=== PATIENT | male | born 1960 | race Two or more races ===

== ENCOUNTER 2023-07-07 08:45 | Inpatient (IN) | payer OTHER ==
[~2023-07-07] VITALS: Ht 185.4 cm; Wt 103.9 kg
[2023-07-07 10:08] LABS: PH,URINE 6.5 (5.0-8.0); URINE APPEARANCE Clear; URINE BILIRRUBIN Negative (NEGATIVE); URINE BLOOD Negative; URINE COLOR Yellow; URINE LEUKOCYTE Negative; URINE NITRATE Negative; URINE PROTEIN Negative (NEGATIVE); URINE UROBILINOGEN 0.2 E.U./dl
[2023-07-07 10:12] LABS: URINE RBC 6.1 uL (0.0-20.8); URINE WBC 2.6 uL (0.0-23.2)
[2023-07-07 10:25] LABS: URINE BACTERIA 3.7 uL (0.0-1933); URINE EPITHELIAL CELLS 0.4 uL (0.0-38.8); URINE GLUCOSE >=1000 MG/DL (NEGATIVE)
[2023-07-07] MEDS ORDERED: JANUVIA100 MG PO (10:26)
[2023-07-07] MEDS ORDERED: ADULT LOW DOSE81 M1 PO (10:27)
[2023-07-07] MEDS ORDERED: LISINO PO (10:27)
[2023-07-07] MEDS ORDERED: ATORVAS PO (10:27)
[2023-07-07] MEDS ORDERED: CATAFLAN PO (10:28)
[2023-07-07 10:34] LABS: HEMATOCRIT 43.4 % (39.0-48.0); HEMOGLOBIN 14.9 g/dL (13-16.00); MEAN CELL VOLUME 87.3 fL (80.0-100.00); MEAN CORPUSCULAR HEMOGLOBIN 30.1 pg (27.00-32.0); MEAN CORPUSCULAR HGB CONC 34.4 g/dl (32.0-36.0); PLATELET COUNT 263 K/uL (150-450); RED BLOOD COUNT 4.97 M/uL (4.00-6.00)
[2023-07-07 10:57] LABS: ALBUMIN 4.1 gm/dL (3.4-5.0); BILIRUBIN TOTAL 1.29 mg/dL (0.3-1.2); CALCIUM 9.7 mg/dL (8.5-10.1); CREATININE SERUM 0.98 mg/dL (0.70-1.30); GFR 77.25; GLOBULINA 3.2 G/DL (2.4-3.5); POTASSIUM 4.77 mEq/L (3.5-5.1); TOTAL PROTEIN 7.3 gm/dL (6.4-8.2)
[2023-07-07 11:00] LABS: INR 1.05; PARTIAL THROMBOPLASTIN TIME 28.5 SECONDS (22.0-34.0)
[2023-07-19] MEDS ORDERED: FAMOTIDINE20 MG (14:03)
[2023-07-19] MEDS ORDERED: GLIMEPIRIDE4 M1 (14:03)
[2023-07-19] MEDS ORDERED: LISINOPRIL10 MG (14:03)
[2023-07-19] MEDS ORDERED: ATORVASTATIN CA40 MG (14:04)
[2023-07-19] MEDS ORDERED: DICLOFENAC POTA25 M1 PO (14:06)
[2023-07-19 22:23] LABS: HEMATOCRIT 43.6 % (39.0-48.0); HEMOGLOBIN 14.5 g/dL (13-16.00); RED BLOOD COUNT 4.91 M/uL (4.00-6.00)
[2023-07-20 07:50] LABS: HEMATOCRIT 41.5 % (39.0-48.0); MEAN CELL VOLUME 88.3 fL (80.0-100.00); MEAN CORPUSCULAR HEMOGLOBIN 29.9 pg (27.00-32.0); MEAN CORPUSCULAR HGB CONC 33.8 g/dl (32.0-36.0); PLATELET COUNT 241 K/uL (150-450); RED CELL DISTRIBUTION WIDTH 13.1 % (11.5-14.5)
[2023-07-21] MEDS ORDERED: XARELTO10 MG PO (06:34)
[2023-07-21] MEDS ORDERED: INTEGRA PLUS C1 EACH PO (06:34)
[2023-07-21] MEDS ORDERED: BACTRIM DS TAB1 EACH PO (06:34)
[2023-07-21] MEDS ORDERED: OXYC1TAB9 PO (06:34)
[2023-07-21 07:53] LABS: HEMATOCRIT 39.1 % (39.0-48.0); HEMOGLOBIN 13.4 g/dL (13-16.00); MEAN CELL VOLUME 87.5 fL (80.0-100.00); MEAN CORPUSCULAR HEMOGLOBIN 29.9 pg (27.00-32.0); MEAN CORPUSCULAR HGB CONC 34.2 g/dl (32.0-36.0); PLATELET COUNT 233 K/uL (150-450); RED BLOOD COUNT 4.47 M/uL (4.00-6.00); RED CELL DISTRIBUTION WIDTH 13.1 % (11.5-14.5)
== END 2023-07-21 18:45 | DRG 470 ==
LOC: SURG 07-13 08:45 → O/R 07-19 11:00 → SURH 07-19 20:52
PROVIDERS: ADMIT Orthopaedic Surgery Sports Medicine; ATTEND Orthopaedic Surgery Sports Medicine
PROC: 3E0F7SF Introduction of Other Gas into Respiratory Tract, Via Natural or Artificial Opening (ICD-10-PCS; 2023-07-19)
PROC: 0SRD0J9 Replacement of Left Knee Joint with Synthetic Substitute, Cemented, Open Approach (ICD-10-PCS; principal; 2023-07-19 12:45)
PROC: B54CZZZ Ultrasonography of Left Lower Extremity Veins (ICD-10-PCS; 2023-07-21)
DX: M17.12 Unilateral primary osteoarthritis, left knee (principal); R60.0 Localized edema; I10 Essential (primary) hypertension; E11.9 Type 2 diabetes mellitus without complications; Z79.4 Long term (current) use of insulin

== ENCOUNTER 2024-10-04 07:45 | Inpatient (IN) | payer OTHER ==
[~2024-10-04] VITALS: Ht 185.4 cm; Wt 97.5 kg
[~2024-10-04 07:45] MED LIST: ADULT LOW DOSE81 M1 PO; ATORVAS PO; ATORVASTATIN CA40 MG; BACTRIM DS TAB1 EACH PO; CATAFLAN PO; DICLOFENAC POTA25 M1 PO; FAMOTIDINE20 MG; GLIMEPIRIDE4 M1; INTEGRA PLUS C1 EACH PO; JANUVIA100 MG PO; LISINO PO; LISINOPRIL10 MG; OXYC1TAB9 PO; XARELTO10 MG PO
[2024-10-04 09:22] LABS: HEMOGLOBIN 16.1 g/dL (13-16.00); MEAN CELL VOLUME 90.5 fL (80.0-100.00); MEAN CORPUSCULAR HGB CONC 34.2 g/dl (32.0-36.0); PLATELET COUNT 244 K/uL (150-450); RED BLOOD COUNT 5.19 M/uL (4.00-6.00); RED CELL DISTRIBUTION WIDTH 14.4 % (11.5-14.5)
[2024-10-04 09:51] LABS: PH,URINE 5.5 (5.0-8.0); URINE APPEARANCE Clear; URINE BILIRRUBIN Negative (NEGATIVE); URINE BLOOD Negative; URINE COLOR Yellow; URINE KETONE Negative (NEGATIVE); URINE LEUKOCYTE Negative; URINE NITRATE Negative; URINE PROTEIN Negative (NEGATIVE); URINE UROBILINOGEN 0.2 E.U./dl
[2024-10-04 09:51] LABS: INR 1.05; PARTIAL THROMBOPLASTIN TIME 29.5 SECONDS (22.0-34.0); PROTHROMBIN TIME 11.4 SECONDS (9.0-11.5)
[2024-10-04] MEDS ORDERED: [UNRECOGNIZED DRUG - OTHER] (09:53)
[2024-10-04] MEDS ORDERED: GABAPENTIN 800MG (09:53)
[2024-10-04] MEDS ORDERED: ETODOLAC 500 MG (09:54)
[2024-10-04 09:55] VITALS: BP 148/77
[2024-10-04 09:56] LABS: URINE WBC 2.1 uL (0.0-23.2)
[2024-10-04 10:00] LABS: URINE BACTERIA 2.4 uL (0.0-1933); URINE EPITHELIAL CELLS 0.4 uL (0.0-38.8); URINE GLUCOSE >=1000 MG/DL (NEGATIVE); URINE RBC 1.6 uL (0.0-20.8)
[2024-10-04 10:19] LABS: BILIRUBIN TOTAL 0.95 mg/dL (0.3-1.2); CALCIUM 9.6 mg/dL (8.5-10.1); CREATININE SERUM 0.96 mg/dL (0.70-1.30); GFR 78.86; GLOBULINA 3.3 G/DL (2.4-3.5); POTASSIUM 4.3 mEq/L (3.5-5.1); TOTAL PROTEIN 7.3 gm/dL (6.4-8.2)
[2024-10-04 11:15] LABS: RH POSITIVE
[2024-10-09] MEDS ORDERED: CEFAZOLIN SODIUM 1,000 MG VIAL ONE ×2 (10:25→17:51)
[2024-10-09] MEDS ORDERED: TRANEXAMIC ACID 100MG/1ML (1000MG) AMPUL IV ONE (12:16)
[2024-10-09] MEDS ORDERED: CEFOXITIN SODIUM 2,000 MG VIAL IV ONE (12:16)
[2024-10-09] MEDS ORDERED: KETOROLAC TROMETHAMINE 60 MG VIAL IM ONE (13:07)
[2024-10-09] MEDS ORDERED: VANCOMYCIN HCL 1,000 MG VIAL ONE ×2 (13:12→13:30)
[2024-10-09] MEDS ORDERED: LIDOCAINE HCL 1%/EPINEPHRINE 20ML VIAL IJ ONE ×2 (14:39→14:45)
[2024-10-09] MEDS ORDERED: MORPHINE SULFATE 2 MG/ML SYRINGE IV ONE (14:45)
[2024-10-09] MEDS ORDERED: MORPHINE SULFATE 2 MG/ML CARTRIDGE IV ONE (15:00)
[2024-10-09] MEDS ORDERED: MORPHINE SULFATE 4 MG/ML CARTRIDGE IV PRN (15:00)
[2024-10-09] MEDS ORDERED: ONDANSETRON HCL 2 MG/ML VIAL IV PRN (15:00)
[2024-10-09] MEDS ORDERED: SODIUM CHLORIDE 0.45 % 1,000 ML IV SCH (15:00)
[2024-10-09] MEDS ORDERED: GENTAMICIN SULFATE 40 MG/ML VIAL IV SCH (17:00)
[2024-10-09] MEDS ORDERED: GENTAMICIN SULFATE 40 MG/ML VIAL ONE (17:50)
[2024-10-09] MEDS ORDERED: CEFAZOLIN SODIUM 1,000 MG VIAL IV SCH (18:00)
[2024-10-09 19:10] VITALS: BP 117/73; O2SAT 99
[2024-10-09 19:11] LABS: HEMATOCRIT 45.6 % (39.0-48.0); HEMOGLOBIN 14.8 g/dL (13-16.00); RED BLOOD COUNT 4.97 M/uL (4.00-6.00)
[2024-10-09] MEDS ORDERED: FAMOtidine 20 MG TABLET PO SCH (21:00)
[2024-10-10 00:30] VITALS: BP 113/63; O2SAT 98
[2024-10-10 07:06] LABS: HEMOGLOBIN 13.8 g/dL (13-16.00); MEAN CELL VOLUME 90.3 fL (80.0-100.00); MEAN CORPUSCULAR HEMOGLOBIN 31.2 pg (27.00-32.0); MEAN CORPUSCULAR HGB CONC 34.5 g/dl (32.0-36.0); PLATELET COUNT 200 K/uL (150-450); RED BLOOD COUNT 4.43 M/uL (4.00-6.00); RED CELL DISTRIBUTION WIDTH 13.9 % (11.5-14.5)
[2024-10-10] MEDS ORDERED: ACETAMINOPHEN WITH CODEINE 1 UDTAB TABLET PO PRN (07:45)
[2024-10-10 08:00] VITALS: BP 151/66; O2SAT 96
[2024-10-10] MEDS ORDERED: ATORVASTATIN CALCIUM 40 MG TABLET PO SCH (09:00)
[2024-10-10] MEDS ORDERED: RIVAROXABAN 10 MG TAB PO SCH (09:00)
[2024-10-10] MEDS ORDERED: CELECOXIB 200 MG CAPSULE PO SCH (09:00)
[2024-10-10] MEDS ORDERED: LISINOPRIL 10 MG TABLET PO SCH (09:00)
[2024-10-10] MEDS ORDERED: SENNA/DOCUSATE SODIUM 1 TAB TABLET PO SCH (09:00)
[2024-10-10] MEDS ORDERED: BACITRACIN 28.35 GM OINT.TUBE TOP SCH (09:00)
[2024-10-10] MEDS ORDERED: IRON FUM,PS/FOLIC/BCOMP,C NO.9 1 CAP CAPSULE PO SCH (09:00)
[2024-10-10] MEDS ORDERED: GLIMEPIRIDE 4 MG TABLET PO SCH (09:00)
[2024-10-10 16:00] VITALS: BP 165/74; O2SAT 96
[2024-10-11 00:27] VITALS: BP 137/78; O2SAT 99
[2024-10-11 06:24] LABS: HEMATOCRIT 39.3 % (39.0-48.0); HEMOGLOBIN 13.3 g/dL (13-16.00); MEAN CORPUSCULAR HEMOGLOBIN 30.9 pg (27.00-32.0); MEAN CORPUSCULAR HGB CONC 33.9 g/dl (32.0-36.0); PLATELET COUNT 179 K/uL (150-450); RED BLOOD COUNT 4.31 M/uL (4.00-6.00); RED CELL DISTRIBUTION WIDTH 14.1 % (11.5-14.5)
[2024-10-11] MEDS ORDERED: INTEGRA PLUS C1 EACH PO (06:25)
[2024-10-11] MEDS ORDERED: Septra Ds Tablet PO (06:25)
[2024-10-11] MEDS ORDERED: ACETAMINOPHEN-1 EAC2 PO (06:26)
[2024-10-11] MEDS ORDERED: XARELTO10 MG PO (06:26)
[2024-10-11] MEDS ORDERED: CELEBREX200MG PO (06:26)
[2024-10-11 08:00] VITALS: BP 152/78; O2SAT 95
[2024-10-11] MEDS ORDERED: SULFAMETHOXAZOLE/TRIMETHOPRIM DS 1 TAB PO SCH (09:00)
== END 2024-10-11 15:25 | DRG 470 ==
LOC: SURH 10-09 07:45 → O/R 10-09 08:50 → SURH 10-09 11:00
PROVIDERS: ADMIT Orthopaedic Surgery Sports Medicine; ATTEND Orthopaedic Surgery Sports Medicine
PROC: 0SRC0JA Replacement of Right Knee Joint with Synthetic Substitute, Uncemented, Open Approach (ICD-10-PCS; principal; 2024-10-09 11:00)
DX: M17.11 Unilateral primary osteoarthritis, right knee (principal); I10 Essential (primary) hypertension; E11.9 Type 2 diabetes mellitus without complications; Z79.4 Long term (current) use of insulin